=== PATIENT | female | born 1980 | race Caucasian/White ===

== ENCOUNTER 2016-03-10 18:25 | Emergency (ER) | payer BC, OTHER ==
[~2016-03-10] VITALS: Ht 162.6 cm; Wt 80.6 kg
[~2016-03-10 18:25] MED LIST: APRESOLINE25 MG PO; BENADRYL25 MG PO; LIBRAX, CLI1 CAPSULE PO; LISINOPRIL40 MG PO; MACROBID100 MG PO; METOPROLOL SUCC50 MG PO; METOPROLOL TART50 MG PO; OMEPRAZOLE40 M1 PO; PAROXETINE HCL10 MG PO; PEPCID20 MG PO; PERCOCET 5/31 TABLET PO; PREDNISONE10 MG PO; PYRIDIUM100 MG PO
[2016-03-10] MEDS ORDERED: ULTRAM50 MG PO (22:09)
[2016-03-10 22:23] VITALS: BP 158/91
== END 2016-03-10 22:30 | disposition home or self-care (01) ==
LOC: EXP 18:25 → EME 18:25 → EXP 22:30
DX: S09.90XA Unspecified injury of head, initial encounter (principal); S16.1XXA Strain of muscle, fascia and tendon at neck level, initial encounter; S70.01XA Contusion of right hip, initial encounter; W10.8XXA Fall (on) (from) other stairs and steps, initial encounter
CPT/HCPCS: 70450; 72125; 72170; 99281; 99283

== ENCOUNTER 2016-05-25 10:20 | Emergency (ER) | payer BC, OTHER ==
[~2016-05-25] VITALS: Ht 162.6 cm; Wt 85.0 kg
[~2016-05-25 10:20] MED LIST changes: +ULTRAM50 MG PO
[2016-05-25 11:08] LABS: EOSINOPHIL (%) 0.7 % (0-5); EOSINOPHIL COUNT 0.1 K/uL (0-0.3); HEMATOCRIT 38.1 % (36.0-46.0); IMMATURE GRANULOCYTE (%) 0.4 % (0.0-0.7); INSTRUMENT ABS NEUTROPHIL CT 5.9 K/uL; LYMPHOCYTE COUNT 1.9 K/uL (1.0-2.8); MCH 33.1 PG (29.0-34.0); MCHC 35.7 G/DL (30.0-36.0); MCV 92.7 FL (83-99); MEAN PLAT.VOLUME 11.1 uM^3 (9.5-12.4); MONOCYTE (%) 5.3 % (3-12); MONOCYTE COUNT 0.4 K/uL (0-0.8); NEUTROPHIL (%) 70.2 % (45-76); NEUTROPHIL COUNT 5.9 K/uL (1.8-6.4); PLATELET COUNT 298 K/uL (156-360); RBC DIS.WIDTH-CV 12.3 % (11.8-14.6); RBC DIS.WIDTH-SD 41.7 % (39-53); RED BLOOD COUNT 4.11 M/uL (3.80-5.20); WHITE BLOOD COUNT 8.4 K/uL (4.1-10.2)
[2016-05-25 11:16] LABS: CHLORIDE 101 mEq/L (99-109); POTASSIUM 3.2 mEq/L (3.7-5.4); SODIUM 137 mEq/L (136-147)
[2016-05-25 11:18] LABS: GLUCOSE 116 mg/dL (70-99)
[2016-05-25 11:20] LABS: ANION GAP 11 MEQ/L (2-14); TOTAL BILIRUBIN 0.7 mg/dL (0.0-1.0)
[2016-05-25 11:22] LABS: ALKALINE PHOSPHATASE 62 IU/L (3-129); GFR ESTIMATE (CALCULATED) > 59 mL/min/
[2016-05-25 11:23] LABS: UREA NITROGEN (BUN) 16 mg/dL (9-23)
[2016-05-25 11:26] LABS: LIPASE 408 U/L (1.0-51.0)
[2016-05-25 11:32] LABS: QUANTITATIVE HCG < 4.0 MIU/ML
[2016-05-25] MEDS ORDERED: ZOFRAN ODT8 MG PO (14:37)
[2016-05-25] MEDS ORDERED: LORTAB 5-325 M1 EACH PO (14:37)
[2016-05-25] MEDS ORDERED: PRILOSEC OTC20 MG PO (14:37)
[2016-05-25 14:46] VITALS: BP 105/78
[2016-05-26] MEDS ORDERED: VITAMIN D31000 UNI2 PO (00:54)
[2016-05-26] MEDS ORDERED: VITAMIN B-12500 MC5 SL (00:54)
[2016-05-26] MEDS ORDERED: HYDROCHLOROTHIA50 MG PO (00:55)
[2016-05-26] MEDS ORDERED: VENLAFAXINE H37.5 M3 PO (00:56)
[2016-05-26] MEDS ORDERED: VENLAFAXINE HCL75 M3 PO (00:56)
[2016-05-26] MEDS ORDERED: LYRICA25 MG PO (00:56)
[2016-05-26] MEDS ORDERED: SIMVASTATIN10 MG PO (00:57)
[2016-05-26] MEDS ORDERED: NAPROSYN500 MG PO (00:58)
[2016-05-26] MEDS ORDERED: IMITREX100 MG PO (00:59)
[2016-05-26] MEDS ORDERED: HYDROCODON-ACE1 EA12 PO (00:59)
[2016-05-26] MEDS ORDERED: HYDROXYZINE PAM25 MG PO (01:00)
[2016-05-26] MEDS ORDERED: BENTYL20 MG PO (15:40)
== END 2016-05-25 14:45 | disposition home or self-care (01) ==
LOC: EME 10:20
PROVIDERS: Emergency Medicine
DX: K80.20 Calculus of gallbladder without cholecystitis without obstruction (principal); K85.90 Acute pancreatitis without necrosis or infection, unspecified; I10 Essential (primary) hypertension; Z87.442 Personal history of urinary calculi; F17.200 Nicotine dependence, unspecified, uncomplicated
CPT/HCPCS: 76705; 80053; 83690; 84702; 85025; 99281; 99285; J2270; J2405; J7030; S0028

== ENCOUNTER 2016-05-25 21:31 | Observation (INO) | payer BC, OTHER ==
[~2016-05-25] VITALS: Ht 162.6 cm; Wt 85.0 kg
[~2016-05-25 21:31] MED LIST changes: +LORTAB 5-325 M1 EACH PO; +PRILOSEC OTC20 MG PO; +ZOFRAN ODT8 MG PO
[2016-05-25 22:36] LABS: HEMATOCRIT 36.6 % (36.0-46.0); MCH 32.6 PG (29.0-34.0); MCHC 34.7 G/DL (30.0-36.0); MCV 93.8 FL (83-99); MEAN PLAT.VOLUME 10.7 uM^3 (9.5-12.4); PLATELET COUNT 287 K/uL (156-360); RBC DIS.WIDTH-CV 12.5 % (11.8-14.6); RBC DIS.WIDTH-SD 43.3 % (39-53); WHITE BLOOD COUNT 10.7 K/uL (4.1-10.2)
[2016-05-25 22:52] LABS: CHLORIDE 101 mEq/L (99-109); POTASSIUM 3.2 mEq/L (3.7-5.4); SODIUM 135 mEq/L (136-147)
[2016-05-25 22:55] LABS: GLUCOSE 98 mg/dL (70-99)
[2016-05-25 22:56] LABS: ANION GAP 8 MEQ/L (2-14); TOTAL BILIRUBIN 0.7 mg/dL (0.0-1.0)
[2016-05-25 22:58] LABS: ALKALINE PHOSPHATASE 56 IU/L (3-129); GFR ESTIMATE (CALCULATED) > 59 mL/min/
[2016-05-25 22:59] LABS: UREA NITROGEN (BUN) 13 mg/dL (9-23)
[2016-05-25 23:00] LABS: DIRECT BILIRUBIN 0.3 mg/dL (0.0-0.3)
[2016-05-25 23:02] LABS: LIPASE 12 U/L (1.0-51.0)
[2016-05-26] MEDS ORDERED: VITAMIN B-12500 MC5 SL (00:54)
[2016-05-26] MEDS ORDERED: VITAMIN D31000 UNI2 PO (00:54)
[2016-05-26] MEDS ORDERED: HYDROCHLOROTHIA50 MG PO (00:55)
[2016-05-26] MEDS ORDERED: VENLAFAXINE H37.5 M3 PO (00:56)
[2016-05-26] MEDS ORDERED: VENLAFAXINE HCL75 M3 PO (00:56)
[2016-05-26] MEDS ORDERED: LYRICA25 MG PO (00:56)
[2016-05-26] MEDS ORDERED: SIMVASTATIN10 MG PO (00:57)
[2016-05-26] MEDS ORDERED: NAPROSYN500 MG PO (00:58)
[2016-05-26] MEDS ORDERED: IMITREX100 MG PO (00:59)
[2016-05-26] MEDS ORDERED: HYDROCODON-ACE1 EA12 PO (00:59)
[2016-05-26] MEDS ORDERED: HYDROXYZINE PAM25 MG PO (01:00)
[2016-05-26 04:19] VITALS: BP 113/62
[2016-05-26 07:08] VITALS: BP 125/64
[2016-05-26 08:34] LABS: ADD MIUA? YES; BILIRUBIN NEGATIVE; BLOOD MODERATE; COLOR YELLOW ((YELLOW)); GLUCOSE (STRIP) NEGATIVE; KETONES NEGATIVE; LEUKOCYTES NEGATIVE; NITRITE NEGATIVE; PROTEIN (STRIP) NEGATIVE; SPECIFIC GRAVITY 1.011 (1.000-1.030); UROBILINOGEN 0.2 MG/DL (0.2-1.0)
[2016-05-26 11:18] LABS: BACTERIA RARE /HPF; CASTS NONE SEEN /LPF; CRYSTALS NONE SEEN; EPITHELIAL CELLS RARE /HPF; MUCUS RARE /LPF; RED BLOOD CELLS 0-5 /HPF (0-5); UCUL ADDED? NO; WHITE BLOOD CELLS 0-5 /HPF (0-5)
[2016-05-26 14:01] VITALS: BP 137/75
[2016-05-26] MEDS ORDERED: BENTYL20 MG PO (15:40)
== END 2016-05-26 16:35 | disposition home or self-care (01) ==
LOC: EME 21:31 → EDOF 05-26 02:36 → 5WEST 05-26 02:36
PROVIDERS: Emergency Medicine; Hospitalist
DX: K80.20 Calculus of gallbladder without cholecystitis without obstruction (principal); E87.1 Hypo-osmolality and hyponatremia; E87.6 Hypokalemia; I10 Essential (primary) hypertension; E78.5 Hyperlipidemia, unspecified; F17.210 Nicotine dependence, cigarettes, uncomplicated
CPT/HCPCS: 78227; 80048; 80076; 81003; 83690; 85027; 87493; 99281; 99284; A9537; G0378; J2270; J2405; J2805; J7030

== ENCOUNTER → 2016-06-05 | Outpatient (CLI) | payer BC, OTHER ==
[~2016-06-05] MED LIST changes: +BENTYL20 MG PO; +FLEXERIL10 MG PO; +HYDROCHLOROTHIA50 MG PO; +HYDROCODON-ACE1 EA12 PO; +HYDROXYZINE PAM25 MG PO; +IMITREX100 MG PO; +LORCET PLUS 7.1 EACH PO; +LYRICA25 MG PO; +NAPROSYN500 MG PO; +PRILOSEC20 MG PO; +SIMVASTATIN10 MG PO; +VENLAFAXINE H37.5 M3 PO; +VENLAFAXINE HCL75 M3 PO; +VITAMIN B-12500 MC5 SL; +VITAMIN D31000 UNI2 PO; +ZOFRAN8 MG PO
== END | disposition home or self-care (01) ==
LOC: CDC 08:37
DX: I45.10 Unspecified right bundle-branch block (principal); K80.20 Calculus of gallbladder without cholecystitis without obstruction
CPT/HCPCS: 93000

== ENCOUNTER 2016-06-09 11:41 | Day surgery (SDC) | payer BC, OTHER ==
[~2016-06-09] VITALS: Ht 162.6 cm; Wt 80.3 kg
[2016-06-09 12:14] VITALS: BP 148/86
[2016-06-09] MEDS ORDERED: COLACE100 MG PO (16:31)
[2016-06-09] MEDS ORDERED: LORTAB 5-325 M1 EACH PO (16:31)
[2016-06-09 18:46] VITALS: BP 108/58
[2016-06-09 19:07] VITALS: BP 108/70
== END 2016-06-09 19:25 | disposition home or self-care (01) ==
LOC: SDC
PROC: 0FT44ZZ Resection of Gallbladder, Percutaneous Endoscopic Approach (ICD-10-PCS; principal; 2016-06-09)
DX: K80.10 Calculus of gallbladder with chronic cholecystitis without obstruction (principal); K85.10 Biliary acute pancreatitis without necrosis or infection; K21.9 Gastro-esophageal reflux disease without esophagitis; I10 Essential (primary) hypertension; F17.200 Nicotine dependence, unspecified, uncomplicated; Z82.49 Family history of ischemic heart disease and other diseases of the circulatory system; Z83.3 Family history of diabetes mellitus; Z88.0 Allergy status to penicillin; Z88.1 Allergy status to other antibiotic agents
CPT/HCPCS: 88304; J0131; J0330; J1100; J1170; J1885; J2250; J2405; J3010

== ENCOUNTER 2016-06-18 23:03 | Emergency (ER) | payer BC, OTHER ==
[~2016-06-18] VITALS: Ht 162.6 cm; Wt 80.7 kg
[~2016-06-18 23:03] MED LIST changes: +COLACE100 MG PO
[2016-06-19 01:25] VITALS: BP 113/75
== END 2016-06-19 01:26 | disposition home or self-care (01) ==
LOC: EME 23:03
DX: M25.531 Pain in right wrist (principal); G89.18 Other acute postprocedural pain; Z98.890 Other specified postprocedural states
CPT/HCPCS: 99281; 99284

== ENCOUNTER 2017-07-09 19:14 | Emergency (ER) | payer BC, OTHER ==
[~2017-07-09] VITALS: Ht 162.6 cm; Wt 79.4 kg
[2017-07-09 19:16] VITALS: BP 149/95
[2017-07-09] MEDS ORDERED: NORCO 5/3251 TABLET PO (19:47)
[2017-07-09] MEDS ORDERED: KEFLEX500 MG PO (19:47)
== END 2017-07-09 19:59 | disposition home or self-care (01) ==
LOC: EME 19:14
DX: K11.8 Other diseases of salivary glands (principal); Z88.0 Allergy status to penicillin; F17.200 Nicotine dependence, unspecified, uncomplicated; I10 Essential (primary) hypertension
CPT/HCPCS: 99281; 99284